=== PATIENT | female | born 1980 | race American Indian/Alaskan Native ===

== ENCOUNTER 2020-04-03 08:16 | Inpatient (IN) ==
[2020-04-03] MEDS ORDERED: OXYTOCIN 30 UNITS/500 ML BAG IV PRN ×2 (08:33→08:35)
[2020-04-03 08:54] LABS: Hematocrit (blood only) 38.3 % (37-47); Hemoglobin 12.9 g/dL (12.0-16.0); Mean Corpuscular Hemoglobin 30.5 pg (25-34); Mean Corpuscular Hgb Conc 33.7 g/dL (32-36); Mean Corpuscular Volume 90.5 fL (80-100); Mean Platelet Volume 11.3 fL (7.4-10.4); Platelet Count 194 K/uL (130-400); RDW Coefficient of Variation 14.2 % (11.5-14.5); RDW Standard Deviation 46.9 fL (36.4-46.3); Red Blood Count 4.23 M/uL (4.2-5.4); White Blood Count 8.86 K/uL (4.8-10.8)
--- NOTE | 2020-04-03 09:02 | History & Physical Report ---
Date of Service April 03, 2020 Assessment & Plan (1) Insulin controlled gestational diabetes mellitus (GDM) during : (2) resulting from in vitro fertilization, antepartum: Admission and Anticipated Discharge Date Admission Date: April 03, 2020 Plan pitocin induction, arom as indicated, epidural on demand. Will start with checking hourly bs for goal of 80-120, insulin as indicated. Anticipate . fetus category one. History of Present Illness Primary Care Provider: [facility] Patient is a 40yof, with iup at 39 0/7 weeks who presents to labor and delivery for induction for A2gdm. Patient conceived by IVF. embryo tested and normal male. Patient Has PCOS and on insulin so treated as GDM and has required insulin. Last ultrasound for growth was 84% efw and AC >98%. Patient also with ama. testing has been reassuring. BS have been difficult to control recently requiring increasing insulin doses, and then in last week , decreasing doses. GBS negative. Patient notes good fm. No lof/vb. Irregular contractions. echo ?VSD. Will need f/u after delivery. labs--A+/ab-/ri/rprn/hepb-/hiv-/gc/ct-/gbs neg,/covid neg Allergies Allergy/AdvReac Type Severity Reaction Status Date / Time No Known Drug Allergies Allergy Verified 04/02/20 09:00 Home Medications Medication Instructions Recorded Confirmed Type cetirizine 10 mg tablet 10 mg PO DAILY 06/14/19 04/02/20 History prenat.vits,gibson,gqc-aliw-qtakn 1 tab PO DAILY 10/03/19 04/02/20 History acetone (urine) test #50 ea 11/19/19 04/02/20 Rx blood sugar diagnostic #150 ea 11/19/19 04/02/20 Rx blood-glucose meter #1 ea 11/19/19 04/02/20 Rx lancets 33 gauge #150 ea 11/19/19 04/02/20 Rx azelastine 137 mcg (0.1 %) nasal 2 spray INTRANASAL DAILY #30 ml 02/29/20 04/02/20 Rx spray aerosol famotidine 40 mg tablet 40 mg PO BID #60 tab 02/29/20 04/02/20 Rx breast pump #1 ea 03/07/20 04/02/20 Rx Humulin N NPH Insulin KwikPen 100 15 unit SUBCUT QPM #15 ml NS 03/14/20 04/02/20 Rx unit/mL (3 mL) subcutaneous Patient History Medical History (Updated 04/03/20 @ 09:04 by Rosibel Mensah MD, FACOG) Asthma History of chicken pox Polycystic ovary syndrome Surgical History S/P correction of deviated nasal septum S/P excision of ganglion cyst Family History Mother Hypertension Father Diabetes Social History Smoking Status: Never smoker Hx Alcohol Use: No Hx Substance Use: No Preferred Language: Setswana Beliefs That Will Affect Care: None marital status: marital status details: Desmond Magana (30) [phone] Current Living Situation: Spouse Current Living Situation Comment: lives with spouse, dog current occupational status: employed current occupation: [employer] Other Information That Helps Us Care for You: No Feels Safe at Home: Yes Safety Concerns: Feels Safe At This Time Assistive Devices: None OB History g1--11/01, sab with [employer] 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, 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 Review of Systems All systems reviewed & are unremarkable except as noted in HPI & below Physical Exam Constitutional: WD/WN, vitals as above Gastrointestinal (Abdomen): obese, nt, nd, gravid Psychiatric: A+Ox3, euthymic affect Genitourinary: cx--5/100/-2 toco--rare contraction efm--130s with mod variability, accels to 160s, no decels Results & Data ([place]) Vital Signs (Past 12 Hours) Vital Signs Pulse BP 04/03/20 08:27 106 H 143/76 H Code Status & VTE Plan VTE Prophylaxis Plan VTE Prophylaxis will be ordered: No Coding Level of Care Code None Diagnoses Insulin controlled gestational diabetes mellitus (GDM) during O24.414 resulting from in vitro fertilization, antepartum O09.819
[2020-04-03] MEDS: LACTATED RINGER'S 1,000 ML IV PRN ×2 (09:22→13:02)
[2020-04-03] MEDS ORDERED: ONDANSETRON INJ 2 MG/ML 2 ML VIAL IV ONE (09:28)
[2020-04-03] MEDS ORDERED: ePHEDrine sulfate 50 MG/ML AMP ONE (12:23)
[2020-04-03] MEDS ORDERED: SODIUM CHLORIDE 0.9% INJ 10 ML VIAL ONE (12:23)
[2020-04-03] MEDS ORDERED: fentaNYL citrate 100 MCG/2 ML VIAL ONE ×2 (12:23→23:28)
[2020-04-03] MEDS ORDERED: BUPIVACAINE 0.25% 30 ML VIAL ONE (12:23)
[2020-04-03] MEDS ORDERED: fentaNYL 2MCG/ML ROPIVACAINE 1.25MG/ML 100 ML BAG EPI ONE (12:24)
[2020-04-03] MEDS ORDERED: PROMETHAZINE HCL 25 MG in SODIUM CHLORIDE 0.9% 50 ML IV PRN (13:20)
[2020-04-03] MEDS ORDERED: ONDANSETRON INJ 2 MG/ML 2 ML VIAL IV PRN (13:20)
[2020-04-03] MEDS ORDERED: NALOXONE HCL 1 MG in SODIUM CHLORIDE 0.9% 1000ML 1,000 ML IV PRN (13:20)
[2020-04-03] MEDS ORDERED: fentaNYL 2MCG/ML ROPIVACAINE 1.25MG/ML 100 ML BAG EPI PRN (13:20)
[2020-04-03] MEDS ORDERED: diphenhydrAMINE 50 MG/ML VIAL IV PRN (13:20)
[2020-04-03] MEDS ORDERED: ePHEDrine sulfate 50 MG/ML AMP IV PRN (13:20)
[2020-04-03] MEDS ORDERED: NALOXONE HCL 0.4 MG/1 ML VIAL/CARP IV PRN (13:20)
[2020-04-03] MEDS ORDERED: D5W AND LACTATED RINGERS 1,000 ML IV SCH (14:45)
--- NOTE | 2020-04-03 15:36 | Labor Progress Brief Note ---
Date of Service April 03, 2020 Subjective comfortable with epidural Assessment & Plan (1) Insulin controlled gestational diabetes mellitus (GDM) during : (2) resulting from in vitro fertilization, antepartum: Admission and Anticipated Discharge Date Admission Date: April 03, 2020 continue current management. aim for 200mvus. Needed to start D5 for lower blood sugars. Will continue to monitor. Fetus reassuring. Physical Exam Constitutional: WD/WN, vitals as above Psychiatric: A+Ox3, euthymic affect Genitourinary: cx--6/100/-2 arom--copious clear toco--q3min, pit at 13 efm--125 with mod variability, accels to 150s, no decels Results & Data ([place]) Vital Signs (Past 12 Hours) Vital Signs Temp Pulse Resp BP Pulse Ox 04/03/20 15:32 99 H 97 04/03/20 15:28 99 H 127/82 04/03/20 15:27 100 H 100 04/03/20 15:22 97 H 99 04/03/20 15:17 86 100 04/03/20 15:13 87 116/57 L 04/03/20 15:12 88 99 04/03/20 15:07 89 99 04/03/20 15:02 96 H 100 04/03/20 14:59 88 20 115/71 04/03/20 14:57 91 H 100 04/03/20 14:52 97 H 99 04/03/20 14:47 87 99 04/03/20 14:43 84 109/57 L 04/03/20 14:42 89 98 04/03/20 14:37 107 H 100 04/03/20 14:32 84 99 04/03/20 14:28 82 109/56 L 04/03/20 14:27 78 100 04/03/20 14:22 75 98 04/03/20 14:17 81 99 04/03/20 14:14 103 H 109/67 04/03/20 14:12 99 H 96 04/03/20 14:07 81 98 04/03/20 14:02 87 99 04/03/20 13:57 110 H 98 04/03/20 13:54 118 H 136/70 04/03/20 13:52 108 H 98 04/03/20 13:48 101 H 133/77 04/03/20 13:47 100 H 134/72 98 04/03/20 13:43 100 H 127/70 04/03/20 13:42 104 H 98 04/03/20 13:41 101 H 129/62 04/03/20 13:39 96 H 135/61 04/03/20 13:37 102 H 132/73 99 04/03/20 13:35 93 H 135/67 04/03/20 13:32 101 H 99 04/03/20 13:27 101 H 100 04/03/20 13:22 99 H 98 04/03/20 13:05 96 H 165/86 H 04/03/20 12:04 37.2 C 93 H 24 127/69 04/03/20 11:03 94 H 20 134/86 04/03/20 10:02 96 H 131/82 04/03/20 08:27 106 H 143/76 H 04/03/20 08:24 37.2 C 20 Coding Level of Care Code None Diagnoses Insulin controlled gestational diabetes mellitus (GDM) during O24.414 resulting from in vitro fertilization, antepartum O09.819
[2020-04-03] MEDS ORDERED: ACETAMINOPHEN 325 MG TAB PO ONE (18:48)
--- NOTE | 2020-04-03 20:12 | Labor Progress Brief Note ---
Date of Service April 03, 2020 Subjective comfortable with epidural Assessment & Plan (1) Insulin controlled gestational diabetes mellitus (GDM) during : (2) resulting from in vitro fertilization, antepartum: Admission and Anticipated Discharge Date Admission Date: April 03, 2020 despite ctx that don't appear adequate, making nice progress. Will allow to labor down. Still feels high. Fetus category one. Physical Exam Constitutional: WD/WN, vitals as above Psychiatric: A+Ox3, euthymic affect Genitourinary: cx--rim/100/0 toco--q2-3min, pit at 26, not adequate per mvus efm--140s with mod variability, accels to 160s, no decels Results & Data ([facility]) Vital Signs (Past 12 Hours) Vital Signs Temp Pulse Resp BP Pulse Ox 04/03/20 20:07 100 H 97 04/03/20 20:02 87 98 04/03/20 19:57 85 98 04/03/20 19:52 90 99 04/03/20 19:50 100 H 93 04/03/20 19:47 96 H 99 04/03/20 19:45 91 H 91 04/03/20 19:44 82 122/62 04/03/20 19:42 89 99 04/03/20 19:37 83 99 04/03/20 19:32 95 H 98 04/03/20 19:30 18 04/03/20 19:28 88 130/71 04/03/20 19:27 103 H 98 04/03/20 19:22 87 99 04/03/20 19:17 90 97 04/03/20 19:13 83 137/73 04/03/20 19:12 85 98 04/03/20 19:07 95 H 99 04/03/20 19:02 37.3 C 92 H 18 100 04/03/20 18:59 83 20 142/75 H 04/03/20 18:57 87 98 04/03/20 18:52 82 99 04/03/20 18:47 87 98 04/03/20 18:43 88 142/73 H 04/03/20 18:42 89 98 04/03/20 18:37 95 H 100 04/03/20 18:36 100 H 94 04/03/20 18:32 94 H 99 04/03/20 18:31 85 94 04/03/20 18:29 84 118/59 L 04/03/20 18:27 83 97 04/03/20 18:24 84 93 04/03/20 18:22 84 95 04/03/20 18:18 86 93 04/03/20 18:17 80 95 04/03/20 18:14 81 115/59 L 04/03/20 18:13 90 93 04/03/20 18:12 85 96 04/03/20 18:08 84 94 04/03/20 18:07 82 94 04/03/20 18:02 92 H 98 04/03/20 17:59 83 18 103/56 L 04/03/20 17:58 84 94 04/03/20 17:57 83 97 04/03/20 17:53 86 94 04/03/20 17:52 86 94 04/03/20 17:47 85 97 04/03/20 17:44 90 90 04/03/20 17:43 87 103/55 L 04/03/20 17:42 87 99 04/03/20 17:37 87 98 04/03/20 17:32 89 97 04/03/20 17:28 82 109/57 L 04/03/20 17:27 91 H 99 04/03/20 17:22 88 98 04/03/20 17:17 96 H 99 04/03/20 17:13 95 H 116/62 04/03/20 17:12 90 96 04/03/20 17:07 99 H 97 04/03/20 17:02 37.6 C H 92 H 20 98 04/03/20 16:59 92 H 20 115/65 04/03/20 16:57 95 H 97 04/03/20 16:52 102 H 99 04/03/20 16:47 100 H 96 04/03/20 16:43 87 121/60 04/03/20 16:42 89 97 04/03/20 16:37 90 97 04/03/20 16:32 99 H 98 20 16:28 84 114/56 L 04/03/20 16:27 85 97 04/03/20 16:22 90 98 04/03/20 16:17 92 H 98 04/03/20 16:14 93 H 126/69 04/03/20 16:12 95 H 97 04/03/20 16:07 101 H 97 04/03/20 16:02 100 H 97 20 15:59 85 20 102/57 L 04/03/20 15:57 89 98 20 15:52 89 99 20 15:47 93 H 98 04/03/20 15:44 96 H 129/65 04/03/20 15:42 88 99 20 15:37 86 99 20 15:32 99 H 97 04/03/20 15:28 37.2 C 99 H 16 127/82 04/03/20 15:27 100 H 100 04/03/20 15:22 97 H 99 04/03/20 15:17 86 100 04/03/20 15:13 87 116/57 L 04/03/20 15:12 88 99 04/03/20 15:07 89 99 04/03/20 15:02 96 H 100 04/03/20 14:59 88 20 115/71 04/03/20 14:57 91 H 100 04/03/20 14:52 97 H 99 04/03/20 14:47 87 99 04/03/20 14:43 84 109/57 L 04/03/20 14:42 89 98 04/03/20 14:37 107 H 100 04/03/20 14:32 84 99 04/03/20 14:28 82 109/56 L 04/03/20 14:27 78 100 04/03/20 14:22 75 98 04/03/20 14:17 81 99 04/03/20 14:14 103 H 20 109/67 04/03/20 14:12 99 H 96 04/03/20 14:07 81 98 04/03/20 14:02 87 99 04/03/20 13:57 110 H 98 04/03/20 13:54 118 H 136/70 04/03/20 13:52 108 H 98 04/03/20 13:48 101 H 133/77 04/03/20 13:47 100 H 134/72 98 04/03/20 13:43 100 H 127/70 20 13:42 104 H 98 04/03/20 13:41 101 H 129/62 20 13:39 96 H 135/61 04/03/20 13:37 102 H 132/73 99 04/03/20 13:35 93 H 135/67 04/03/20 13:32 101 H 99 04/03/20 13:27 101 H 100 04/03/20 13:22 99 H 98 04/03/20 13:05 96 H 165/86 H 04/03/20 12:04 37.2 C 93 H 24 127/69 04/03/20 11:03 94 H 20 134/86 04/03/20 10:02 96 H 131/82 04/03/20 08:27 106 H 143/76 H 04/03/20 08:24 37.2 C 20 Coding Level of Care Code None Diagnoses Insulin controlled gestational diabetes mellitus (GDM) during O24.414 resulting from in vitro fertilization, antepartum O09.819
--- NOTE | 2020-04-03 23:15 | Labor Progress Brief Note ---
Date of Service April 03, 2020 Subjective pushing with good effort Assessment & Plan (1) Insulin controlled gestational diabetes mellitus (GDM) during : (2) resulting from in vitro fertilization, antepartum: (3) Failure of descent in labor, delivered, current hospitalization: Admission and Anticipated Discharge Date Admission Date: April 03, 2020 Patient was allowed to labor down for 1.5 hours and now has been pushing for over one hour. Baby is a little tachy but patient is afebrile. she has essentially not moved the vertex in all this time. I feel can call FTD given no descent in the last 2.5 hours with effort. I have discussed this with them and they agree to move forward with c/s. Consent reviewed and signed. Physical Exam Constitutional: WD/WN, vitals as above Psychiatric: A+Ox3, euthymic affect Genitourinary: cx--c/c/-2 to -1, toco--q2.5-3, pit at 26 efm--160s-170s with mod variability, accels with pushing, variables with pushing [facility] Data ([facility]) Vital Signs (Past 12 Hours) Vital Signs Temp Pulse Resp BP Pulse Ox 04/03/20 23:07 103 H 95 04/03/20 23:02 111 H 99 04/03/20 23:00 113 H 82 L 04/03/20 22:59 103 H 122/66 04/03/20 22:57 116 H 95 04/03/20 22:54 37.1 C 04/03/20 22:52 110 H 98 04/03/20 22:47 115 H 98 04/03/20 22:43 116 H 135/99 04/03/20 22:42 99 H 93 04/03/20 22:38 102 H 92 04/03/20 22:37 105 H 99 04/03/20 22:32 138 H 98 04/03/20 22:30 18 04/03/20 22:27 107 H 97 04/03/20 22:22 131 H 93 04/03/20 22:20 127 H 94 04/03/20 22:17 97 H 94 04/03/20 22:15 94 H 94 04/03/20 22:14 96 H 112/55 L 04/03/20 22:12 100 H 97 11/19/20 22:07 119 H 97 1920 22:04 90 94 1920 22:02 95 H 97 1920 22:00 18 20 21:59 90 107/58 L 92 1920 21:57 92 H 97 19/20 21:53 97 H 93 1920 21:52 102 H 96 1920 21:47 94 H 95 1920 21:46 91 H 94 1920 21:45 91 H 106/50 L 1920 21:42 92 H 94 19/20 21:41 112 H 93 1920 21:37 129 H 96 20 21:35 103 H 93 20 21:32 96 H 99 1920 21:30 18 20 21:29 111 H 126/80 1920 21:27 105 H 99 20 21:22 93 H 96 20 21:17 93 H 97 20 21:15 87 94 19/20 21:14 94 H 134/83 1920 21:12 93 H 94 19/20 21:09 95 H 94 20 21:07 99 H 96 1920 21:02 87 97 1920 21:00 37.2 C 16 20 20:58 92 H 126/68 19/20 20:57 88 98 19/20 20:52 95 H 99 1920 20:47 97 H 96 1920 20:44 83 115/61 19/20 20:42 82 96 19/20 20:37 88 98 19/20 20:32 89 98 19/20 20:30 16 19/20 20:29 84 117/56 L 19/20 20:27 84 99 19/20 20:22 84 98 19/20 20:17 88 99 19/20 20:14 91 H 129/71 19/20 20:12 94 H 100 19/20 20:07 100 H 97 19/20 20:02 87 98 1920 20:00 16 11/19/20 19:57 85 98 19/20 19:52 90 99 19/20 19:50 100 H 93 19/20 19:47 96 H 99 19/20 19:45 91 H 91 19/20 19:44 82 122/62 19/20 19:42 89 99 19/20 19:37 83 99 19/20 19:32 95 H 98 19/20 19:30 18 19/20 19:28 88 130/71 19/20 19:27 103 H 98 19/20 19:22 87 99 19/20 19:17 90 97 19/20 19:13 83 137/73 19/20 19:12 85 98 19/20 19:07 95 H 99 04/03/20 19:02 37.3 C 92 H 18 100 19/20 18:59 83 20 142/75 H 04/03/20 18:57 87 98 04/03/20 18:52 82 99 04/03/20 18:47 87 98 19/20 18:43 88 142/73 H 04/03/20 18:42 89 98 19/20 18:37 95 H 100 04/03/20 18:36 100 H 94 19/20 18:32 94 H 99 04/03/20 18:31 85 94 19/20 18:29 84 118/59 L 19/20 18:27 83 97 19/20 18:24 84 93 19/20 18:22 84 95 19/20 18:18 86 93 19/20 18:17 80 95 19/20 18:14 81 115/59 L 19/20 18:13 90 93 19/20 18:12 85 96 19/20 18:08 84 94 19/20 18:07 82 94 19/20 18:02 92 H 98 19/20 17:59 83 18 103/56 L 19/20 17:58 84 94 19/20 17:57 83 97 19/20 17:53 86 94 19/20 17:52 86 94 19/20 17:47 85 97 11/19/20 17:44 90 90 20 17:43 87 103/55 L 20 17:42 87 99 20 17:37 87 98 20 17:32 89 97 20 17:28 82 109/57 L 20 17:27 91 H 99 20 17:22 88 98 04/03/20 17:17 96 H 99 04/03/20 17:13 95 H 116/62 04/03/20 17:12 90 96 20 17:07 99 H 97 04/03/20 17:02 37.6 C H 92 H 20 98 04/03/20 16:59 92 H 20 115/65 04/03/20 16:57 95 H 97 04/03/20 16:52 102 H 99 04/03/20 16:47 100 H 96 04/03/20 16:43 87 121/60 04/03/20 16:42 89 97 04/03/20 16:37 90 97 04/03/20 16:32 99 H 98 20 16:28 84 114/56 L 04/03/20 16:27 85 97 04/03/20 16:22 90 98 04/03/20 16:17 92 H 98 04/03/20 16:14 93 H 126/69 04/03/20 16:12 95 H 97 04/03/20 16:07 101 H 97 04/03/20 16:02 100 H 97 04/03/20 15:59 85 20 102/57 L 04/03/20 15:57 89 98 04/03/20 15:52 89 99 20 15:47 93 H 98 20 15:44 96 H 129/65 20 15:42 88 99 20 15:37 86 99 20 15:32 99 H 97 20 15:28 37.2 C 99 H 16 127/82 20 15:27 100 H 100 20 15:22 97 H 99 20 15:17 86 100 20 15:13 87 116/57 L 04/03/20 15:12 88 99 20 15:07 89 99 04/03/20 15:02 96 H 100 04/03/20 14:59 88 20 115/71 04/03/20 14:57 91 H 100 04/03/20 14:52 97 H 99 04/03/20 14:47 87 99 04/03/20 14:43 84 109/57 L 04/03/20 14:42 89 98 04/03/20 14:37 107 H 100 04/03/20 14:32 84 99 04/03/20 14:28 82 109/56 L 04/03/20 14:27 78 100 04/03/20 14:22 75 98 04/03/20 14:17 81 99 04/03/20 14:14 103 H 20 109/67 04/03/20 14:12 99 H 96 04/03/20 14:07 81 98 04/03/20 14:02 87 99 04/03/20 13:57 110 H 98 04/03/20 13:54 118 H 136/70 04/03/20 13:52 108 H 98 04/03/20 13:48 101 H 133/77 04/03/20 13:47 100 H 134/72 98 04/03/20 13:43 100 H 127/70 04/03/20 13:42 104 H 98 04/03/20 13:41 101 H 129/62 04/03/20 13:39 96 H 135/61 04/03/20 13:37 102 H 132/73 99 04/03/20 13:35 93 H 135/67 04/03/20 13:32 101 H 99 04/03/20 13:27 101 H 100 04/03/20 13:22 99 H 98 04/03/20 13:05 96 H 165/86 H 04/03/20 12:04 37.2 C 93 H 24 127/69 Coding Level of Care Code None Diagnoses Insulin controlled gestational diabetes mellitus (GDM) during O24.414 resulting from in vitro fertilization, antepartum O09.819 Failure of descent in labor, delivered, current hospitalization O62.2
[2020-04-03] MEDS ORDERED: MoRPHine SULFATE PF 1 MG/ML 10 ML AMP/VIAL ONE (23:28)
[2020-04-03] MEDS ORDERED: CITRIC ACID/SODIUM CITRATE 15 ML UDC PO ONE (23:30)
[2020-04-03] MEDS ORDERED: LIDOCAINE/EPINEPHRINE 2% 1:200,000 20 ML SDV ONE (23:31)
[2020-04-03] MEDS ORDERED: OXYTOCIN 10 UNITS/ML VIAL ONE (23:31)
[2020-04-04] MEDS ORDERED: MIDAZOLAM HCL 1 MG/ML 2ML VIAL ONE ×2 (00:12→00:13)
[2020-04-04] MEDS ORDERED: fentaNYL citrate 100 MCG/2 ML VIAL ONE ×2 (00:19→00:20)
[2020-04-04] MEDS ORDERED: OXYTOCIN 10 UNITS/ML VIAL ONE ×5 (00:28)
[2020-04-04] MEDS ORDERED: ONDANSETRON INJ 2 MG/ML 2 ML VIAL ONE (00:30)
[2020-04-04] MEDS ORDERED: CARBOPROST TROMETHAMINE 250 MCG/ML AMPUL IM ONE (00:38)
[2020-04-04] MEDS ORDERED: NALOXONE HCL 0.4 MG/1 ML VIAL/CARP IV PRN (00:56)
[2020-04-04] MEDS ORDERED: NALOXONE HCL 1 MG in SODIUM CHLORIDE 0.9% 1000ML 1,000 ML IV PRN (00:56)
[2020-04-04] MEDS ORDERED: PROMETHAZINE HCL 25 MG in SODIUM CHLORIDE 0.9% 50 ML IV PRN ×2 (00:56→18:56)
[2020-04-04] MEDS ORDERED: MoRPHine SULFATE PF 1 MG/ML 10 ML AMP/VIAL EPI ONE (00:56)
[2020-04-04] MEDS ORDERED: ePHEDrine sulfate 50 MG/ML AMP IV PRN ×2 (00:56→01:07)
[2020-04-04] MEDS ORDERED: NALOXONE HCL 0.08 MG in SYRINGE 1.8 ML IV PRN (00:56)
[2020-04-04] MEDS ORDERED: LACTATED RINGER'S 500 ML IV PRN (00:56)
[2020-04-04] MEDS ORDERED: diphenhydrAMINE 50 MG/ML VIAL IV PRN ×2 (00:56→18:56)
[2020-04-04] MEDS ORDERED: HYDROmorphone INJ 0.5 MG/0.5 ML SYR IV PRN (00:56)
[2020-04-04 00:59] LABS: Base Excess Cord Venous Blood -2.5 mEq/L (-7.7-1.9); Cord Venous Blood HCO3 25 mmol/L (18.4-26.8); Cord Venous Blood PCO2 51 mmHg (30.4-57.2); Cord Venous Blood PO2 32 mmHg (14.1-43.3)
[2020-04-04] MEDS ORDERED: DC INTRASPINAL MORPHINE SCH (01:00)
[2020-04-04] MEDS ORDERED: NO NARCOTICS OR SEDATIVES SCH (01:00)
[2020-04-04] MEDS ORDERED: SODIUM CHLORIDE 0.9% 1000ML 1,000 ML IV SCH (01:00)
[2020-04-04 01:01] LABS: Base Excess Cord Arterial Bld -2.6 mEq/L (-9-1.8); CO2 Cord Arterial Blood 54 mmHg (39.1-73.5); HCO3 Cord Arterial Blood 25 mmol/L (19.7-28.5); PO2 Cord Arterial Blood 26 mmHg (4.1-31.7); pH Cord Arterial Blood 7.28 (7.1-7.38)
[2020-04-04 01:03] LABS: Oxygen Sat Cord Arterial Blood < 60.0 % (<60)
[2020-04-04] MEDS ORDERED: HYDROmorphone INJ 1 MG/ML SYRINGE ONE ×3 (01:03→01:56)
[2020-04-04] MEDS ORDERED: ALBUTEROL HFA 8 GM INHALER INH PRN (01:05)
[2020-04-04] MEDS ORDERED: ATROPINE SULFATE 0.1 MG/ML 10ML SYR IV PRN (01:07)
[2020-04-04] MEDS ORDERED: ACETAMINOPHEN 1,000 MG/100 ML VIAL IV STA (01:07)
[2020-04-04] MEDS ORDERED: HYDROmorphone INJ 2 MG/ML SYR/VIAL IV PRN (01:15)
--- NOTE | 2020-04-04 01:19 | Operative Report ---
PG Post Operative Report Pre & Post Diagnosis Operation Date: 04/03/20 23:50 Pre-Op Diagnosis: 1. IUP at 39 weeks 2. IVF 3. Insulin required gestational diabetic 4. Failure to descend Post-Op Diagnosis: 1. IUP at 39 weeks 2. IVF 3. Insulin required gestational diabetic 4. Failure to descend 5. Delivery of live male child at 0006 I identified the patient and participated in the time-out.: Yes Procedure Operation Date: 04/03/20 23:50 Actual Procedures Primary low transverse Section in - Rosibel Mensah MD, FACOG Surgeon Rosibel Mensah MD, FACOG Piercing Artist Dr. [place] Estimated Blood Loss 1,200 Findings Consistent with Post-Op Diagnosis viable male infant in cephalic presentation, apgars 7/8, 8#9.6oz, nl uterus/tubes/ovaries bilaterally Fluids 2400cc Specimens none Drains lang Anesthesia Type General/Epidural Disposition Accompanied Patient To Recovery: Yes Disposition: L&D Indications with iup at 39 weeks with ivf and A2GDM who presents for induction. Progressed with pitocin augmentation to c/c/-2 to -1 station. No descent after laboring down for 1.5 hours and one hour of pushing. Description of Procedure The patient was taken to the operating room where she was identified verbally and by bracelet. She was transferred to the operating table where her epidural was dosed by anesthesia. she was placed in the supine position with a leftward tilt. A Lang catheter had been placed sterilely. the patient was prepped and draped in a normal standard fashion. the anesthetic was tested and found not to be adequate, with sharp pain noted on the right. The patient required intu bation for her procedure and because of the urgency of getting the baby delivered because of general anesthesia, A time-out was not held. She received 3gm of Ancef non acoustic operator to the OR. A Pfannenstiel skin incision was made with a knife and taken down to the underlying layer of fascia with the knife. The fascia was incised in the midline with the knife and taken out laterally with scissors. the superior edge of the fascial incision was grasped, elevated and the underlying layer of rectus muscle was taken off bluntly. In a similar fashion, the inferior edge of the fascial incision was grasped, elevated and the underlying layer of rectus muscle was taken off bluntly. The muscles were bluntly in the midline. The peritoneum was entered bluntly. The incision was then stretched. The bladder blade was placed. A hysterotomy incision was scored with a knife and the incision was stretched cephalad and caudad with the shaving machine operator's fingers. The operators hand was placed into the incision and the head was delivered atraumatically. No nuchal cord. The nose and mouth were bulb suctioned and there was an immediate cry. the rest of the infant was then delivered without difficulty. The nose and mouth were again bulb suctioned. the cord was clamped and cut and the infant was then handed off to the awaiting chief cloth finishing range operator for drying and attention. Cord blood and segment were obtained. The placenta was manually extracted. the uterus was exteriorized and cleared of all clot and debris with moistened laparotomy sponges. A section of the placenta that was retained after removal was removed with the operators hands, the uterine cavity was then clean. The hysterotomy incision was quite low and the anterior cervical edge was seen near the incision. The bladder was palpated and found to be low and not near the incision. The urine was found to be slightly blood tinged but otherwise clear. The hysterotomy incision was repaired in two layers, the first in a running locked layer, the second in an imbricating layer. Hemostasis was noted to be good. The uterus, unfortunately was quite boggy. This required treatment with dilute pitocin, im methergine and IM hemobate (patient's asthma history was noted, but her atony was a more serious issue at the time.) Posterior cul-de-sac was irrigated and cleared of all clot and debris. The hysterotomy incision was again inspected and found to be hemostatic. the uterus was reinteriorized. Hysterotomy incision was again inspected and found to be hemostatic. Rectus muscles were reapproximated with several interrupted stitches of 0 Vicryl. The fascia was then reapproximated with 0 Vicryl starting at the edges and meeting in the midline. The subcuticular tissues were copiously irrigated and bleeding was attended to with cautery. The skin was then closed with 4-0 Vicryl in a subcuticular fashion. All sponge, lap and needle counts were correct x 2. The patient was taken to the recovery room in stable condition. Patient did receive duramorph. I attest to the content of the Intraoperative Record and any orders documented therein. Any exceptions are noted below.
[2020-04-04] MEDS ORDERED: DIPHTHERIA/TETANUS/PERTUSSIS 0.5 ML SYR/VIAL IM ONE (01:24)
[2020-04-04] MEDS ORDERED: MAGNESIUM HYDROXIDE SUSP 30 ML UDC PO PRN (01:24)
[2020-04-04] MEDS ORDERED: SENNA 8.6 MG TAB PO PRN (01:24)
[2020-04-04] MEDS ORDERED: HYDROCORTISONE ACETATE 25 MG SUPP PR PRN (01:24)
[2020-04-04] MEDS ORDERED: BENZOCAINE 20% AER SPR 82.5 GM CAN EXT PRN (01:24)
[2020-04-04] MEDS ORDERED: SUPERCREAM 0.870% 15 GM JAR EXT PRN (01:24)
[2020-04-04] MEDS ORDERED: PHENYLEPHRINE 100MCG/ML 5ML SYR ONE (01:29)
[2020-04-04] MEDS ORDERED: METHYLERGONOVINE MALEATE 0.2 MG/ML AMP ONE (01:29)
[2020-04-04] MEDS ORDERED: CARBOPROST TROMETHAMINE 250 MCG/ML AMPUL ONE (01:29)
--- NOTE | 2020-04-04 01:42 | Anesthesiology Progress Note ---
Date of Service April 04, 2020 Anesthesia Post Procedure Vital Signs Vital Signs: Temp Pulse Resp BP Pulse Ox 04/04/20 01:37 107 H 95 04/04/20 01:36 101 H 160/89 H 04/04/20 01:34 100 H 91 04/04/20 01:32 104 H 93 04/04/20 01:27 104 H 93 04/04/20 01:26 99 H 160/95 H 04/04/20 01:22 108 H 95 04/04/20 01:21 105 H 94 04/04/20 01:17 114 H 165/83 H 96 04/04/20 01:16 114 H 91 04/04/20 01:12 107 H 93 04/04/20 01:11 101 H 94 04/04/20 01:07 104 H 94 04/04/20 01:06 103 H 144/85 H 04/04/20 01:05 105 H 94 04/04/20 01:02 101 H 98 04/04/20 00:57 101 H 97 04/04/20 00:56 106 H 135/84 04/03/20 23:33 104 H 98 04/03/20 23:28 99 H 139/66 98 04/03/20 23:23 98 H 98 04/03/20 23:18 102 H 95 04/03/20 23:13 96 H 127/62 04/03/20 23:12 101 H 97 04/03/20 23:07 103 H 95 04/03/20 23:02 111 H 99 04/03/20 23:00 113 H 20 82 L 04/03/20 22:59 103 H 122/66 04/03/20 22:57 116 H 95 04/03/20 22:54 37.1 C 04/03/20 22:52 110 H 98 04/03/20 22:47 115 H 98 04/03/20 22:43 116 H 135/99 04/03/20 22:42 99 H 93 04/03/20 22:38 102 H 92 04/03/20 22:37 105 H 99 04/03/20 22:32 138 H 98 04/03/20 22:30 18 04/03/20 22:27 107 H 97 04/03/20 22:22 131 H 93 04/03/20 22:20 127 H 94 11/19/20 22:17 97 H 94 1920 22:15 94 H 94 1920 22:14 96 H 112/55 L 1920 22:12 100 H 97 1920 22:07 119 H 97 19/20 22:04 90 94 1920 22:02 95 H 97 1920 22:00 18 1920 21:59 90 107/58 L 92 1920 21:57 92 H 97 1920 21:53 97 H 93 19/20 21:52 102 H 96 20 21:47 94 H 95 1920 21:46 91 H 94 1920 21:45 91 H 106/50 L 20 21:42 92 H 94 19/20 21:41 112 H 93 1920 21:37 129 H 96 1920 21:35 103 H 93 1920 21:32 96 H 99 1920 21:30 18 20 21:29 111 H 126/80 19/20 21:27 105 H 99 19/20 21:22 93 H 96 19/20 21:17 93 H 97 1920 21:15 87 94 19/20 21:14 94 H 134/83 19/20 21:12 93 H 94 19/20 21:09 95 H 94 19/20 21:07 99 H 96 1920 21:02 87 97 1920 21:00 37.2 C 16 1920 20:58 92 H 126/68 19/20 20:57 88 98 19/20 20:52 95 H 99 19/20 20:47 97 H 96 19/20 20:44 83 115/61 19/20 20:42 82 96 19/20 20:37 88 98 19/20 20:32 89 98 19/20 20:30 16 19/20 20:29 84 117/56 L 19/20 20:27 84 99 19/20 20:22 84 98 19/20 20:17 88 99 19/20 20:14 91 H 129/71 19/20 20:12 94 H 100 19/20 20:07 100 H 97 19/20 20:02 87 98 19/20 20:00 16 19/20 19:57 85 98 19/20 19:52 90 99 19/20 19:50 100 H 93 19/20 19:47 96 H 99 19/20 19:45 91 H 91 19/20 19:44 82 122/62 19/20 19:42 89 99 19/20 19:37 83 99 19/20 19:32 95 H 98 19/20 19:30 18 19/20 19:28 88 130/71 19/20 19:27 103 H 98 19/20 19:22 87 99 19/20 19:17 90 97 19/20 19:13 83 137/73 19/20 19:12 85 98 19/20 19:07 95 H 99 04/03/20 19:02 37.3 C 92 H 18 100 19/20 18:59 83 20 142/75 H 19/20 18:57 87 98 19/20 18:52 82 99 19/20 18:47 87 98 19/20 18:43 88 142/73 H 19/20 18:42 89 98 19/20 18:37 95 H 100 04/03/20 18:36 100 H 94 1920 18:32 94 H 99 19/20 18:31 85 94 19/20 18:29 84 118/59 L 19/20 18:27 83 97 19/20 18:24 84 93 19/20 18:22 84 95 19/20 18:18 86 93 19/20 18:17 80 95 19/20 18:14 81 115/59 L 19/20 18:13 90 93 19/20 18:12 85 96 19/20 18:08 84 94 19/20 18:07 82 94 19/20 18:02 92 H 98 19/20 17:59 83 18 103/56 L 11/19/20 17:58 84 94 11/19/20 17:57 83 97 20 17:53 86 94 20 17:52 86 94 20 17:47 85 97 20 17:44 90 90 20 17:43 87 103/55 L 20 17:42 87 99 20 17:37 87 98 20 17:32 89 97 20 17:28 82 109/57 L 20 17:27 91 H 99 20 17:22 88 98 20 17:17 96 H 99 04/03/20 17:13 95 H 116/62 04/03/20 17:12 90 96 20 17:07 99 H 97 04/03/20 17:02 37.6 C H 92 H 20 98 04/03/20 16:59 92 H 20 115/65 04/03/20 16:57 95 H 97 20 16:52 102 H 99 04/03/20 16:47 100 H 96 20 16:43 87 121/60 20 16:42 89 97 20 16:37 90 97 20 16:32 99 H 98 20 16:28 84 114/56 L 04/03/20 16:27 85 97 20 16:22 90 98 20 16:17 92 H 98 20 16:14 93 H 126/69 20 16:12 95 H 97 20 16:07 101 H 97 20 16:02 100 H 97 20 15:59 85 20 102/57 L 20 15:57 89 98 20 15:52 89 99 04/03/20 15:47 93 H 98 20 15:44 96 H 129/65 04/03/20 15:42 88 99 19/20 15:37 86 99 1920 15:32 99 H 97 20 15:28 37.2 C 99 H 16 127/82 1920 15:27 100 H 100 20 15:22 97 H 99 04/03/20 15:17 86 100 04/03/20 15:13 87 116/57 L 04/03/20 15:12 88 99 04/03/20 15:07 89 99 04/03/20 15:02 96 H 100 04/03/20 14:59 88 20 115/71 04/03/20 14:57 91 H 100 04/03/20 14:52 97 H 99 04/03/20 14:47 87 99 04/03/20 14:43 84 109/57 L 04/03/20 14:42 89 98 04/03/20 14:37 107 H 100 04/03/20 14:32 84 99 04/03/20 14:28 82 109/56 L 04/03/20 14:27 78 100 04/03/20 14:22 75 98 04/03/20 14:17 81 99 04/03/20 14:14 103 H 20 109/67 04/03/20 14:12 99 H 96 04/03/20 14:07 81 98 04/03/20 14:02 87 99 04/03/20 13:57 110 H 98 04/03/20 13:54 118 H 136/70 04/03/20 13:52 108 H 98 04/03/20 13:48 101 H 133/77 04/03/20 13:47 100 H 134/72 98 04/03/20 13:43 100 H 127/70 04/03/20 13:42 104 H 98 04/03/20 13:41 101 H 129/62 04/03/20 13:39 96 H 135/61 04/03/20 13:37 102 H 132/73 99 04/03/20 13:35 93 H 135/67 04/03/20 13:32 101 H 99 04/03/20 13:27 101 H 100 04/03/20 13:22 99 H 98 04/03/20 13:05 96 H 165/86 H 04/03/20 12:04 37.2 C 93 H 24 127/69 04/03/20 11:03 94 H 20 134/86 04/03/20 10:02 96 H 131/82 04/03/20 08:27 106 H 143/76 H 04/03/20 08:24 37.2 C 20 Pain Intensity Bilateral Abdomen: Pain Intensity: 0 Transfer of Care Handoff Completed per policy Notes Mental Status: alert / awake / arousable and participated in evaluation Patient Amnestic to Procedure: Yes Nausea / Vomiting: adequately controlled Pain: adequately controlled Airway Patency, RR, SpO2: stable & adequate BP & HR: stable & adequate Hydration State: stable & adequate Anesthetic Complications: no major complications apparent and Pt Satisfied with anesthetic care
[2020-04-04] MEDS ORDERED: AZELASTINE~ORDER AWAITING ACTION SCH (01:45)
[2020-04-04] MEDS: OXYTOCIN 20 UNITS in LACTATED RINGER'S 1,000 ML IV SCH ×2 (01:46→09:54)
[2020-04-04] MEDS: ONDANSETRON INJ 2 MG/ML 2 ML VIAL IV PRN ×3 (01:49→18:41)
[2020-04-04 01:50] LABS: Hematocrit (blood only) 36.9 % (37-47); Hemoglobin 12.3 g/dL (12.0-16.0); Mean Corpuscular Hemoglobin 30.7 pg (25-34); Platelet Count 177 K/uL (130-400); RDW Coefficient of Variation 14.4 % (11.5-14.5); RDW Standard Deviation 48.3 fL (36.4-46.3); Red Blood Count 4.01 M/uL (4.2-5.4); White Blood Count 11.61 K/uL (4.8-10.8)
[2020-04-04 01:53] LABS: Mean Corpuscular Hgb Conc 33.3 g/dL (32-36)
[2020-04-04] MEDS ORDERED: KETOROLAC 30 MG/ML VIAL ONE (05:07)
[2020-04-04] MEDS ORDERED: KETOROLAC 30 MG/ML VIAL IV ONE (05:15)
--- NOTE | 2020-04-04 05:20 | Obstetrical Progress Note ---
Date of Service April 04, 2020 Subjective [] is a [] y/o female G[]P[] who is POD #[] following for [] at [] WGA. She reports feeling well overall this morning. [] abdominal cramping & []/10 pain well managed on analgesics. Voiding []. Tolerating meals overnight and able to ambulate some. [] passing gas but [] bowel movement. Has some persistent lochia with some improvement this morning. Currently (breast / bottle) feeding. Review of Systems Denies fever, chills, sweats Denies shortness of breath, difficulty breathing, chest pain, palpitations, chest pressure. Denies breast pain. Denies dysuria. Denies headache or changes in vision. Physical Exam General: Alert, oriented. No acute distress. Cardiac: Regular rate and rhythm, no murmurs/rubs/gallops. Respiratory: Clear to auscultation bilaterally a/p, no wheezes/rales/rhonchi. No increased work of breathing. Symmetrical chest rise. No respiratory distress. Abdomen: Soft, nontender, nondistended. Bowel sounds present. Uterus: Uterine fundus firm, palpable [] cm below umbilicus. Surgical scar clean and healing well. Lower Extremities: No lower extremity edema or swelling. No deep calf pain. Chato's negative bilaterally. Results & Data ([facility]) Vital Signs (Past 12 Hours) Vital Signs Temp Pulse Pulse Resp BP BP Pulse Ox 04/04/20 04:00 36.5 C 100 H 20 138/70 95 04/04/20 03:15 37.4 C 110 H 20 145/65 H 96 04/04/20 03:12 109 H 97 04/04/20 03:08 107 H 86 L 04/04/20 03:07 109 H 94 04/04/20 03:02 112 H 145/65 H 96 04/04/20 02:57 112 H 94 04/04/20 02:56 109 H 162/73 H 04/04/20 02:52 114 H 95 04/04/20 02:47 121 H 95 04/04/20 02:46 114 H 163/72 H 04/04/20 02:42 121 H 93 04/04/20 02:37 123 H 149/68 H 94 04/04/20 02:32 114 H 94 04/04/20 02:27 111 H 141/63 H 95 04/04/20 02:22 115 H 95 04/04/20 02:17 119 H 94 04/04/20 02:12 110 H 93 04/04/20 02:07 112 H 93 04/04/20 02:06 109 H 137/79 04/04/20 02:02 109 H 94 04/04/20 01:57 113 H 95 04/04/20 01:56 106 H 150/90 H 04/04/20 01:52 115 H 93 04/04/20 01:47 110 H 138/82 95 04/04/20 01:42 111 H 96 04/04/20 01:37 107 H 95 04/04/20 01:36 101 H 160/89 H 04/04/20 01:34 100 H 91 04/04/20 01:32 104 H 93 04/04/20 01:27 104 H 93 04/04/20 01:26 99 H 160/95 H 04/04/20 01:22 108 H 95 04/04/20 01:21 105 H 94 04/04/20 01:17 114 H 165/83 H 96 04/04/20 01:16 114 H 91 04/04/20 01:12 107 H 93 04/04/20 01:11 101 H 94 04/04/20 01:07 104 H 94 04/04/20 01:06 103 H 144/85 H 04/04/20 01:05 105 H 94 04/04/20 01:02 101 H 98 04/04/20 00:57 101 H 97 04/04/20 00:56 106 H 135/84 04/03/20 23:33 104 H 98 04/03/20 23:28 99 H 139/66 98 04/03/20 23:23 98 H 98 04/03/20 23:18 102 H 95 04/03/20 23:13 96 H 127/62 04/03/20 23:12 101 H 97 04/03/20 23:07 103 H 95 04/03/20 23:02 111 H 99 04/03/20 23:00 113 H 20 82 L 04/03/20 22:59 103 H 122/66 04/03/20 22:57 116 H 95 04/03/20 22:54 37.1 C 04/03/20 22:52 110 H 98 20 22:47 115 H 98 20 22:43 116 H 135/99 20 22:42 99 H 93 20 22:38 102 H 92 20 22:37 105 H 99 20 22:32 138 H 98 20 22:30 18 04/03/20 22:27 107 H 97 04/03/20 22:22 131 H 93 20 22:20 127 H 94 1920 22:17 97 H 94 20 22:15 94 H 94 20 22:14 96 H 112/55 L 04/03/20 22:12 100 H 97 04/03/20 22:07 119 H 97 04/03/20 22:04 90 94 04/03/20 22:02 95 H 97 04/03/20 22:00 18 04/03/20 21:59 90 107/58 L 92 04/03/20 21:57 92 H 97 04/03/20 21:53 97 H 93 20 21:52 102 H 96 20 21:47 94 H 95 20 21:46 91 H 94 20 21:45 91 H 106/50 L 04/03/20 21:42 92 H 94 20 21:41 112 H 93 20 21:37 129 H 96 20 21:35 103 H 93 20 21:32 96 H 99 20 21:30 18 20 21:29 111 H 126/80 1920 21:27 105 H 99 20 21:22 93 H 96 19/20 21:17 93 H 97 04/03/20 21:15 87 94 19/20 21:14 94 H 134/83 20 21:12 93 H 94 19/20 21:09 95 H 94 20 21:07 99 H 96 20 21:02 87 97 1920 21:00 37.2 C 16 20 20:58 92 H 126/68 20 20:57 88 98 11/19/20 20:52 95 H 99 19/20 20:47 97 H 96 19/20 20:44 83 115/61 19/20 20:42 82 96 19/20 20:37 88 98 19/20 20:32 89 98 19/20 20:30 16 19/20 20:29 84 117/56 L 19/20 20:27 84 99 19/20 20:22 84 98 19/20 20:17 88 99 19/20 20:14 91 H 129/71 19/20 20:12 94 H 100 19/20 20:07 100 H 97 19/20 20:02 87 98 19/20 20:00 16 19/20 19:57 85 98 19/20 19:52 90 99 19/20 19:50 100 H 93 19/20 19:47 96 H 99 19/20 19:45 91 H 91 19/20 19:44 82 122/62 19/20 19:42 89 99 19/20 19:37 83 99 19/20 19:32 95 H 98 19/20 19:30 18 19/20 19:28 88 130/71 19/20 19:27 103 H 98 19/20 19:22 87 99 19/20 19:17 90 97 19/20 19:13 83 137/73 19/20 19:12 85 98 19/20 19:07 95 H 99 19/20 19:02 37.3 C 92 H 18 100 19/20 18:59 83 20 142/75 H 19/20 18:57 87 98 19/20 18:52 82 99 19/20 18:47 87 98 19/20 18:43 88 142/73 H 19/20 18:42 89 98 19/20 18:37 95 H 100 19/20 18:36 100 H 94 19/20 18:32 94 H 99 19/20 18:31 85 94 19/20 18:29 84 118/59 L 19/20 18:27 83 97 11/19/20 18:24 84 93 04/03/20 18:22 84 95 04/03/20 18:18 86 93 04/03/20 18:17 80 95 04/03/20 18:14 81 115/59 L 04/03/20 18:13 90 93 04/03/20 18:12 85 96 04/03/20 18:08 84 94 04/03/20 18:07 82 94 04/03/20 18:02 92 H 98 04/03/20 17:59 83 18 103/56 L 04/03/20 17:58 84 94 04/03/20 17:57 83 97 04/03/20 17:53 86 94 04/03/20 17:52 86 94 04/03/20 17:47 85 97 04/03/20 17:44 90 90 04/03/20 17:43 87 103/55 L 04/03/20 17:42 87 99 04/03/20 17:37 87 98 04/03/20 17:32 89 97 04/03/20 17:28 82 109/57 L 04/03/20 17:27 91 H 99 04/03/20 17:22 88 98
[2020-04-04] MEDS ORDERED: KETOROLAC 30 MG/ML VIAL IV PRN ×2 (07:32→18:56)
[2020-04-04] MEDS ORDERED: MEPERIDINE HCL 25 MG/ML CARP/VIAL IV PRN (07:32)
[2020-04-04 08:21] LABS: Hematocrit (blood only) 32.4 % (37-47); Mean Corpuscular Hemoglobin 30.6 pg (25-34); Mean Platelet Volume 11.4 fL (7.4-10.4); Platelet Count 183 K/uL (130-400); RDW Coefficient of Variation 13.9 % (11.5-14.5); RDW Standard Deviation 46.2 fL (36.4-46.3); White Blood Count 11.83 K/uL (4.8-10.8)
[2020-04-04] MEDS: SIMETHICONE 80 MG CHEW PO SCH ×3 (08:25→20:51)
[2020-04-04] MEDS: FERROUS SULFATE 325 MG TAB PO SCH (08:25)
[2020-04-04] MEDS: FAMOTIDINE 40 MG TABLET PO SCH ×2 (08:25→20:51)
[2020-04-04] MEDS: PRENATAL VITAMIN 1 TAB PO SCH (08:25)
[2020-04-04] MEDS: CETIRIZINE HCL 10 MG TABLET PO SCH (08:25)
[2020-04-04] MEDS: DOCUSATE SODIUM 100 MG CAP PO SCH ×2 (08:25→20:50)
[2020-04-04] MEDS: MoRPHine SULFATE 4 MG/ML 1 ML CARP\\VIAL IV PRN ×3 (09:48→18:37)
[2020-04-04] MEDS ORDERED: CHLORASEPTIC 1.4% SOLN 180 ML BTL MT PRN (11:40)
--- NOTE | 2020-04-04 16:18 | Obstetrical Progress Note ---
Date of Service April 04, 2020 Assessment & Plan Admission and Anticipated Discharge Date Admission Date: April 03, 2020 Discussed throat pain with anesthesia, recommended ice, chloraseptic spray, and salt water gargles. Pt denies difficulty with breathing and satting well, will continue these measures. Discussed ENT consult if still no improvement or if begins having difficulty breathing, though discussed improvement will take some time. Pt and amenable Subjective Pt's pain has been difficult to control, abdominally and with throat. Had difficult ET placement during CS overnight, has had sore throat during the day. Notes pain was bad enough that she needed pain meds for throat pain earlier. No CP, SOB, difficulty breathing otherwise. Ice and jello do help, chloraseptic spray helps a little as well but is still very painful. Abd pain does improve with pain meds Physical Exam Constitutional: WD/WN, vitals as above no acute distress ENMT: Mild swelling noted on lower R neck, tender to palpation. No erythema, nodularity, palpable masses Respiratory: normal respiratory effort; no respiratory distress and no labored breathing Results & Data ([facility]) Vital Signs (Past 12 Hours) Vital Signs Temp Pulse Resp BP Pulse Ox Pulse Ox 04/04/20 14:16 18 95 04/04/20 13:00 14 93 04/04/20 12:00 16 95 04/04/20 11:00 98.2 F 94 H 14 133/84 91 04/04/20 10:00 15 93 04/04/20 09:00 14 92 04/04/20 07:55 98.1 F 103 H 16 130/83 95 95 04/04/20 06:08 20 96 04/04/20 05:21 20 93 PG Care Time/CCT Total # of Minutes Spent Total Time Spent with Patient: Total time spent is greater than 50% in coordination of care (as documented) at patient's floor/unit and/or counseling patient: Coding Level of Care Code None
[2020-04-04] MEDS ORDERED: LACTATED RINGER'S 1,000 ML IV SCH (17:32)
[2020-04-04] MEDS ORDERED: MEPERIDINE HCL 50 MG/ML CARP IV PRN (18:56)
[2020-04-04] MEDS ORDERED: ONDANSETRON INJ 2 MG/ML 2 ML VIAL IV PRN (18:56)
[2020-04-04] MEDS ORDERED: diphenhydrAMINE Capsule 25 MG CAP PO PRN (18:56)
[2020-04-04] MEDS: oxyCODONE/ACETAMINOPHEN 5mg/325mg TAB PO PRN ×2 (20:15→20:48)
[2020-04-05] MEDS: oxyCODONE/ACETAMINOPHEN 5mg/325mg TAB PO PRN ×4 (00:45→13:56)
[2020-04-05] MEDS: IBUPROFEN 600 MG TAB PO PRN ×6 (00:46→21:36)
--- NOTE | 2020-04-05 05:49 | Obstetrical Progress Note ---
Date of Service <Demetrius Johnson MD - Last Filed: 04/05/20 06:48> April 05, 2020 Assessment & Plan <Demetrius Johnson MD - Last Filed: 04/05/20 06:48> (1) S/P : Eladia is a 40 y/o female who is POD #1 following PLCTS following initial IOL for GDMA2 with subsequent non-progressing labor at 39 WGA. - Feels well today. Eating well, voiding well, ambulating well. - Continue to monitor throat pain throughout today; swelling is minimal this AM - Pain well managed on Motrin and Percocet; Chloraseptic spray PRN for throat pain - Routine postoperative care today with focus on pain management and progressive return to activity -- OOB, ambulation, diet progression as tolerated - After discharge will have [address] Rodrick Raymond <Demetrius Johnson MD - Last Filed: 04/05/20 06:48> Eladia is a 40 y/o female who is POD #1 following PLCTS following initial IOL for GDMA2 with subsequent non-progressing labor at 39 WGA. She reports feeling well overall this morning. Some abdominal cramping with pain well managed on analgesics. Voiding without difficulty since [place] removal yesterday evening. Tolerating meals overnight and able to ambulate some. Endorses passing gas but not yet bowel movement. Has some persistent lochia with some improvement this morning. Breast feeding without difficulty. She underwent difficult intubation prior to her c/s and unfortunately experienced a significant amount of pain yesterday, alongside some very mild unilateral right-sided neck swelling. Pain was both external on the skin and at the back of her throat. She attempted Chloraseptic spray, ice pops, and external application of ice, with some - but not much - relief. This AM, she reports doing much better. Still having pain in her throat, but not as significant as before. No SOB. Eating OK, mildly painful. Review of Systems Denies fever, chills, sweats Denies shortness of breath, difficulty breathing, chest pain, palpitations, chest pressure. Denies breast pain. Denies dysuria. Denies headache or changes in vision. Physical Exam <Demetrius Johnson MD - Last Filed: 04/05/20 06:48> General: Alert, oriented. No acute distress. Cardiac: Regular rate and rhythm, no murmurs/rubs/gallops. Respiratory: Clear to auscultation bilaterally a/p, no wheezes/rales/rhonchi. No increased work of breathing. Symmetrical chest rise. No respiratory distress. Abdomen: Soft, nontender, nondistended. Bowel sounds present. Uterus: Uterine fundus firm, palpable 2 cm below umbilicus. Surgical scar clean and healing well. Lower Extremities: No lower extremity edema or swelling. No deep calf pain. Chato's negative bilaterally. Results & Data ([facility]) <Demetrius Johnson MD - Last Filed: 04/05/20 06:48> Vital Signs (Past 12 Hours) Vital Signs Temp Pulse Resp BP Pulse Ox 04/05/20 00:15 36.9 C 110 H 17 123/82 94 04/04/20 20:50 37.2 C 100 H 16 127/85 94 04/04/20 18:30 18 94 <Betsy Madrid MD - Last Filed: 04/05/20 07:31> Co-Signing Physician Notes Resident Physician Supervision Note: I interviewed and examined the patient. Discussed with Dr. Johnson and agree with findings and plan as documented in the note. Any exceptions or clarifications are listed here: POD1 s/p pLTCS for arrest of descent. Doing well, meeting all milestones. Throat pain and external swelling is improved from yesterday with ice and ice chips, broth, jello. No difficulty breathing. Abd pain also improved, managed with PO pain meds. Abd binder helps with ambulation. H/H appropriate this morning. Continue routine pp care Documented By: Betsy Madrid MD Resident Activity Tracking <Demetrius Johnson MD - Last Filed: 04/05/20 06:48> Resident Involvement: Resident Care Provided Care Provided: Adult Hospital Medicine and OB Delivery
[2020-04-05 05:55] LABS: Mean Corpuscular Hgb Conc 33.6 g/dL (32-36); Mean Platelet Volume 10.8 fL (7.4-10.4); Platelet Count 182 K/uL (130-400)
[2020-04-05 06:19] LABS: Basophils # (auto) 0.01 K/uL (0-0.2); Basophils % (auto) 0.1 %; Eosinophils # (auto) 0.15 K/uL (0-0.5); Eosinophils % (auto) 1.6 %; Hematocrit (blood only) 28.6 % (37-47); Hemoglobin 9.6 g/dL (12.0-16.0); Immature Granulocytes # (auto) 0.04 K/uL (0.00-0.02); Immature Granulocytes % (auto) 0.4 %; Lymphocytes # (auto) 1.35 K/uL (1.2-3.4); Mean Corpuscular Hemoglobin 30.6 pg (25-34); Mean Corpuscular Volume 91.1 fL (80-100); Monocytes # (auto) 0.72 K/uL (0.11-0.59); Monocytes % (auto) 7.5 %; Neutrophils # (auto) 7.36 K/uL (1.4-6.5); Neutrophils % (auto) 76.4 %; RBC Morphology Unremarkable; RDW Coefficient of Variation 14.4 % (11.5-14.5); RDW Standard Deviation 47.2 fL (36.4-46.3); Red Blood Count 3.14 M/uL (4.2-5.4); White Blood Count 9.63 K/uL (4.8-10.8)
[2020-04-05] MEDS: DOCUSATE SODIUM 100 MG CAP PO SCH ×2 (07:56→19:59)
[2020-04-05] MEDS: SIMETHICONE 80 MG CHEW PO SCH ×5 (07:56→19:59)
[2020-04-05] MEDS: PRENATAL VITAMIN 1 TAB PO SCH (07:56)
[2020-04-05] MEDS: FERROUS SULFATE 325 MG TAB PO SCH (07:56)
[2020-04-05] MEDS: FAMOTIDINE 40 MG TABLET PO SCH ×2 (09:32→19:59)
[2020-04-05] MEDS: CETIRIZINE HCL 10 MG TABLET PO SCH (09:32)
[2020-04-05] MEDS: ACETAMINOPHEN 325 MG TAB PO PRN (16:34)
[2020-04-05] MEDS: oxyCODONE HCL IR 5 MG TAB (IMMEDIATE RELEASE) PO PRN ×2 (18:16→21:36)
[2020-04-05] MEDS ORDERED: bisacodyL 5 MG TABEC PO SCH (20:00)
[2020-04-06] MEDS ORDERED: bisacodyL 10 MG SUPP PR PRN (01:02)
[2020-04-06] MEDS: IBUPROFEN 600 MG TAB PO PRN ×3 (01:24→12:35)
[2020-04-06] MEDS: oxyCODONE HCL IR 5 MG TAB (IMMEDIATE RELEASE) PO PRN ×3 (01:24→12:34)
[2020-04-06] MEDS: ACETAMINOPHEN 325 MG TAB PO PRN ×2 (02:34→07:50)
[2020-04-06 06:31] LABS: Hematocrit (blood only) 26.4 % (37-47); Hemoglobin 8.6 g/dL (12.0-16.0)
[2020-04-06] MEDS: PRENATAL VITAMIN 1 TAB PO SCH (07:34)
[2020-04-06] MEDS: FERROUS SULFATE 325 MG TAB PO SCH (07:34)
[2020-04-06] MEDS: SIMETHICONE 80 MG CHEW PO SCH ×2 (07:34→12:34)
[2020-04-06] MEDS: DOCUSATE SODIUM 100 MG CAP PO SCH (07:34)
--- NOTE | 2020-04-06 10:03 | Obstetrical Progress Note ---
Date of Service April 06, 2020 Assessment & Plan (1) S/P : 40yo P1 s/p LTCS. Doing well today. Reporting significant improvement in pain control. Requesting discharge. Stable for discharge Subjective Ambulation: ambulating normally Voiding: no voiding problems Passing Gas:: Yes Diet Tolerance:: regular diet Lochia:: Small Feeding Type:: breast feeding Physical Exam Constitutional WD/WN, vitals as above Respiratory normal respiratory effort; no respiratory distress and no labored breathing Gastrointestinal (Abdomen) Inspection/Auscultation: abdomen normal to inspection; abdomen not distended Percussion/Palpation: abdomen soft; abdomen nontender, no guarding and abdomen not rigid Genitourinary OB Exam Abdomen: + fundal height Fundus: + firm and + relation to umbilicus (Below); not tender and not boggy Results & Data ([facility]) Vital Signs (Past 12 Hours) Vital Signs Temp Pulse Resp BP Pulse Ox 04/06/20 07:35 36.7 C 82 20 133/84 99 04/06/20 00:10 36.7 C 101 H 18 115/71 100
--- NOTE | 2020-04-08 00:48 | Discharge Summary (DS) ---
ADMISSION DIAGNOSES: 1. Intrauterine at 39 weeks. 2. Insulin controlled gestational diabetes. 3. resulting from in vitro fertilization. DISCHARGE DIAGNOSES: 1. Intrauterine at 39 weeks. 2. Insulin controlled gestational diabetes. 3. resulting from in vitro fertilization. 4. Failure to descend. PROCEDURES: Epidural anesthesia, Pitocin augmentation, amniotomy, primary low transverse section. HISTORY OF PRESENT ILLNESS: The patient is a 40-year-old female 2, para 0-0-1-0 with an intrauterine at 39 and 0/7 weeks who presents to labor and delivery for induction for A2 gestational diabetes. The patient conceived by IVF. The embryo test is a normal male. The patient has a history of PCOS, and on insulin, so treated as a GDM and has required insulin. Last ultrasound for growth was 84th percentile. Estimated weight and an AC in the greater than 98th percentile at 36 weeks. The patient also has advanced maternal age, testing has been reassuring. Blood sugars were initially difficult to control, requiring increasing insulin dosage. In the last week, decreasing doses. GBS negative. echo showed a questionable VSD with need for repeat after delivery. For the rest of the patient's history, please see her history and physical. ASSESSMENT: This is a 39 and 0/7 weeks , here for induction for A2 gestational diabetes. HOSPITAL COURSE: Pitocin induction was started. The patient eventually underwent amniotomy for copious amounts of clear fluid and had an epidural. She progressed despite lack of adequate contractions per IUPC to complete-complete and 0 to +1 station. The patient labored down for an hour and a half and then pushed for an hour without any descent of the head, so decision was made to proceed with section. The patient underwent a primary low transverse section without difficulty. The surgery was complicated by uterine atony with a 1200 mL blood loss. She delivered a viable male infant in cephalic presentation, Apgars 7 and 8, weight 8 pounds 9.6 ounces. Normal uterus, tubes, and ovaries were noted bilaterally. The patient's postoperative course was uncomplicated. She tolerated a regular diet, ambulated without difficulty, had her pain well controlled by discharge on oral pain medications and was passing gas, she was discharged home on day 2/3 to return in 6 weeks for postoperative check. Her discharge H and H was 8.6 and 26.4.
== END 2020-04-06 14:15 | disposition home or self-care (01) | DRG 787 ==
LOC: 4S1 08:16 → 4S2 04-04 04:03